=== PATIENT | male | born 1950 | race Caucasian/White ===

== ENCOUNTER 2020-07-02 14:14 | Outpatient (CLI) | payer MEDICARE, OTHER, SELFPAY | END 2020-07-02 14:15 | disposition home or self-care (01) | LOC: ANHCOVIDVC 14:14 | PROVIDERS: PCP Family Medicine | DX: Z23 Encounter for immunization (principal) | CPT/HCPCS: 0001A; 91300 ==

== ENCOUNTER 2020-07-23 14:15 | Outpatient (CLI) | payer MEDICARE, OTHER, SELFPAY | END 2020-07-23 14:16 | disposition home or self-care (01) | LOC: ANHCOVIDVC 14:15 | PROVIDERS: PCP Family Medicine | DX: Z23 Encounter for immunization (principal) | CPT/HCPCS: 0002A; 91300 ==

== ENCOUNTER 2021-06-19 09:06 | Outpatient (CLI) | payer MEDICARE, OTHER, SELFPAY ==
--- NOTE | ~2021-06-19 | XR_ITS ---
EXAMINATION: XR foot LT min 3V DATE: 06/19/2021 09:37 INDICATION: Left foot pain TECHNIQUE: Dorsoplantar, lateral, and 2 oblique views of the left foot were obtained. COMPARISON: None. FINDINGS: Bone alignment is normal. There is no fracture. There is advanced osteoarthritis at the fir st metatarsophalangeal joint. Calcified atherosclerosis is noted. IMPRESSION: 1. No acute osseous abnormality. Reviewed, dictated and finalized at location A. ADV[employer]ATE
--- NOTE | ~2021-06-19 | XR_ITS ---
XR foot RT min 3V DATE: 06/19/2021 09:36 INDICATION: Foot pain, throbbing in toes. TECHNIQUE: Standing 3 view examination COMPARISON: None FINDINGS: There is severe osteoarthritis at the first metatarsophalangeal joint. No fracture or dislocation, periosteal reaction or bone destruction. Minimal plantar calcaneal enthesopathy. Anterior and posterior tibial artery and metatarsal artery calcification; consider diabetes. IMPRESSION: Severe osteoarthritis at first metatarsophalangeal joint Reviewed, dictated and finalized at location B. STANT PARALEGAL
== END 2021-06-19 09:07 | disposition home or self-care (01) ==
PROVIDERS: PCP Family Medicine; Visit Provider Podiatrist Foot & Ankle Surgery
DX: M19.072 Primary osteoarthritis, left ankle and foot (principal); M19.071 Primary osteoarthritis, right ankle and foot
CPT/HCPCS: 73630

== ENCOUNTER 2022-05-26 11:13 | Outpatient (CLI) | payer MEDICARE, OTHER, SELFPAY ==
--- NOTE | ~2022-05-26 | XR_ITS ---
Left Knee Technique: AP, lateral, and sunrise views were obtained. Clinical History: Pain Findings: No fracture or dislocation is seen. Osseous alignment is anatomic. Joint spaces are preserv ed without degenerative or erosive change. Soft tissues are unremarkable. No joint effusion is seen. Impression: Unremarkable left knee radiographs. Reviewed, dictated and finalized at location . MECHANIC Impression: Unremarkable left knee radiographs.
== END 2022-05-26 11:14 | disposition home or self-care (01) ==
PROVIDERS: PCP Family Medicine; Visit Provider Nurse Practitioner Family
DX: M25.562 Pain in left knee (principal)
CPT/HCPCS: 73564

== ENCOUNTER 2022-10-01 14:45 | Outpatient (RCR) | payer MEDICARE, OTHER, SELFPAY ==
--- NOTE | 2022-08-14 20:27 | PTOPEVAL1 ---
Assessment and note entered by Emilio Jones, PT Evaluation Information Assessment Status Evaluation Diagnosis L knee pain Subjective Information Patient reports he started having L knee after playing some sports and feeling like he landed wrong and felt his knee get tweaked. He has pain that is around the L knee going into the quads and down into the calf. 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 Wants to stay active, has trouble currently. Does not want to use NSAID's because he would have to stop drinking beer because he is worried about liver issues. Assessment PT Clinical Summary Jacobo is a 71 year old male coming into the clinic with L knee pain. Patient has tightness in his L hamstrings and weakness in his hip abductors and VMO. Physical therapy will work on improving deficits to allow the knee to be more stable and use manual and modalities as needed for pain control. Plan of Care Interventions Electrical Stimulation,Gait Training,Hot Pack/Cold Pack,Manual Therapy,Neuro Re-education,Patient/ Caregiver Education,Therapeutic Activities, Therapeutic Exercise,Ultrasound Other Interventions taping, cupping, IASTM PT Services Indicated Yes Treatment Frequency and 1-2x/wk for 4 weeks Duration These treatments will address the objective and functional deficits as defined above. The patient will be advanced safely and appropriately in order for the patient to progress towards his/her prior level of function. Additional exercises will be introduced and as well as a comprehensive home exercise program upon discharge, if needed, ?to ensure carryover of functional gains achieved in the clinic. This treatment plan has been reviewed and agreement upon by the patient.
--- NOTE | 2022-08-29 13:06 | PCPTNOTE ---
Pt no showed his appt. today due to thinking he had a later time in the after noon. He will be in [place] for the next two weeks and should be back for his next appt. on September 11 at 3:30.
--- NOTE | 2022-09-11 16:23 | PTOPREEVAL ---
Assessment and note entered by Emilio Jones, PT Evaluation Information Assessment Status Re-evaluation Diagnosis R shoulder pain, L knee pain Subjective Information Patient reports the knee has been feeling better about 80%, but the shoulder started bothering him mainly in sleeping and when unsupported. Pain is in the shoulder and upper pec no radiating pain down the arm or into the upper back or neck. Reported Pain Level Pain Score 0,0: Self Report Assessment PT Clinical Summary Jacobo is a 71 year old male coming in for L knee pain and now with a new script for a R shoulder pain. He was originally evaluated on 08/13/22. He has met his original pain, functional, and range of motion goals. He met 1/2 of his knee strengthening goals. Patient will continue to be seen for his knee. Patient has weak scapular muscles and tight pecs. Will work on correcting the overbalanced and rounded shoulders posture with stretching and strengthening, modalities and manual therapy as needed for pain. Plan of Care Interventions Electrical Stimulation,Gait Training,Hot Pack/Cold Pack,Manual Therapy,Neuro Re-education,Patient/ Caregiver Education,Therapeutic Activities, Therapeutic Exercise,Ultrasound Other Interventions cupping, taping, IASTM. PT Services Indicated Yes Treatment Frequency and 1-2x/wk for 4 weeks Duration These treatments will address the objective and functional deficits as defined above. The patient will be advanced safely and appropriately in order for the patient to progress towards his/her prior level of function. Additional exercises will be introduced and as well as a comprehensive home exercise program upon discharge, if needed, ?to ensure carryover of functional gains achieved in the clinic. This treatment plan has been reviewed and agreement upon by the patient.
--- NOTE | 2022-10-01 16:23 | PTOPDC ---
Assessment and note entered by Emilio Jones, PT Evaluation Information Assessment Status Discharge Diagnosis R shoulder pain Subjective Information Patient finishes session with HÉCTOR Sherwood. Patient reports he feels like he is no longer having any issues and would like to be discharged. No pain with pickleball, volleyball, and sleeping through the night. Reported Pain Level Pain Score 0: Self Report Pain Score 0: Self Report Assessment PT Clinical Summary Jacobo is a 71 year old male coming into the clinic with a diagnosis of R shoulder pain and prior to that L knee pain. He was evaluated on 08/13/22 and attended 7 sessions. He has met all of his goals including improved strength in his scapular muscles, improved flexibility in his pecs minors, and able to sleep through the night. Discharged from skilled physical therapy. Plan of Care PT Services Indicated No
== END 2022-10-03 08:19 | disposition home or self-care (01) ==
LOC: ANHPT 14:45
PROVIDERS: PCP Family Medicine; Visit Provider Nurse Practitioner Family
DX: M25.562 Pain in left knee (principal)
CPT/HCPCS: 97110; 97112; 97161; 97164; 97530; 99199

== ENCOUNTER 2023-11-11 00:49 | Day surgery (SDC) | payer MEDICARE, OTHER, SELFPAY ==
[2023-10-26 09:38] VITALS: BMI 24.4
[2023-11-11 06:39] VITALS: BP 108/79; PULSE 81; RESP 17; TEMP 36; O2SAT 97; BMI 22.8
[2023-11-11] MEDS: LACTATED RINGERS 1,000 ML 150 ML IV CONT (06:51)
[2023-11-11] MEDS: GENTAMICIN 80MG/SOD CHL 50 ML 80 MG/50 ML BAG 100 MG IVPB (06:52)
[2023-11-11] MEDS: AMPICILLIN 2 GM/NS 100 ML 2 GM/100 ML BAG IVPB (07:21)
--- NOTE | 2023-11-11 07:25 | WPDANESEPPF ---
Anes - Initial Pre Proc Eval Procedure: Operation Date: 11/11/23 08:00 Proposed Procedures p Colonoscopy - Garth Francois MD Date/Time: 11/11/23 07:25 Surgeon: Garth Francois MD Pre Op Diagnosis: Family hx. colon CA Patient Data Age: 73 Gender: M Height: 1.75 m Weight: 70.1 kg Last Vital Signs Temp 96.8 F L 11/11/23 06:39 Pulse 81 11/11/23 06:39 Resp 17 11/11/23 06:39 BP 108/79 11/11/23 06:39 Pulse Ox 97 11/11/23 06:39 O2 Del Method Room Air 11/11/23 06:39 Allergies Allergy/AdvReac Type Severity Reaction Status Date / Time simvastatin AdvReac Unknown ELEVATED Verified 11/11/23 06:37 CREATININE Home Medications Medication Instructions Recorded Confirmed Type aspirin 81 mg tablet,delayed 81 mg PO DAILY 04/18/19 11/11/23 History release multivitamin 1 tablet PO HS 04/18/19 11/11/23 History omega-3 acid ethyl esters 1 gram 4 cap PO DAILY 04/18/19 11/11/23 History capsule atorvastatin 80 mg tablet 80 mg PO DAILY 01/02/21 11/11/23 History collagen 1 dose BYMOUTH DAILY 11/27/21 11/11/23 History ketoconazole 2 % shampoo 1 applic topical 2XW #120 mL 02/06/23 11/11/23 Rx Patient hx anesthesia problems: none Family hx anesthesia problems: none Results Review: All pre-operative results and documents have been reviewed as part of the pre-operative evaluation. [facility] Past Medical History Medical History Abnormal fasting glucose (07/22/21) Glucose elevated at 108 on 07/22/2021. Aortic valve disease CAD (coronary artery disease) Echocardiogram 07/09/2022 with mild LVH and mild diastolic dysfunction with ejection fraction 65% with mitral valve prolapse, mild mitral valve regurgitation, tricuspid valve regurgitation, pulmonary valve regurgitation and trace aortic valve regurgitation. Dandruff in adult Dupuytren's contracture of left hand Family history of colon cancer Family history of hemochromatosis Hx of basal cell carcinoma Hyperlipidemia, unspecified Total cholesterol 147, triglycerides 71, HDL 72 and LDL 60 on 07/22/2021. Joint pain Left knee pain FPC use of drug Nocturia PSA normal at 0.57 on 07/22/2021. Right shoulder pain Tick bite Surgical History Surgical History History of aortic valve replacement 07/11/2016 History of appendectomy (~2016) S/P CABG (coronary artery bypass graft) (~07/11/16) Family History Family History Father Carcinoma of colon Grandparent Family history of rheumatoid arthritis Sibling AA (alcohol abuse) Other Family history of elevated blood lipids Social History Social History Smoking packs per day: 1.5 Smoking cigarettes per day: 30.0 Years smoked: 12 Smoking pack-years: 18.00 Smoking status: Former smoker Tobacco type: cigarettes Smoking end date: 05/04/86 Alcohol intake: current Drinks per week: 25 Alcohol use details: between 0-6 beers a day Substance use: never Substance use type: does not use Lack of Transportation: No Lack of Food: Never True Current Housing: I Have Housing Concerned About Future Housing: No Difficulty Paying Gas/Electric Bills: No Difficulty Paying for Meds: No Currently Unemployed: No Education: Master's Degree or Higher Difficulty w/ Childcare or Family Care: No Living arrangements: with family Spiritual care concerns: No Anes - Eval Final PreProcedure Day of Procedure 11/11/23 07:25 Patient weight: normal Heart: regular rate and rhythm Lungs: clear to auscultation Airway: Mallampati scale class II Neurological: alert and oriented Last oral intake: >/= 8 hours ASA classification: III Emergent: no Anesthetic plan: proceed Anesthesia type and monitoring: general GIVS and standard monito
--- NOTE | 2023-11-11 07:41 | PM.HPGS ---
History of Present Illness History of Present Illness Consent: Risks, benefits, and alternatives have been discussed and questions answered. Patient agrees to proceed with procedure. Chief complaint: Family hx. colon CA Narrative: Jacobo Scott is a 73 year old male here for colonoscopy, last one 5 years ago, father had colon cancer Review of Systems Review of Systems: All systems reviewed & are unremarkable except as noted in HPI and below PMFSH Past Medical History Medical History (Updated 11/11/23 @ 07:43 by Garth Francois MD) Abnormal fasting glucose (07/22/21) Glucose elevated at 108 on 07/22/2021. Aortic valve disease CAD (coronary artery disease) Echocardiogram 07/09/2022 with mild LVH and mild diastolic dysfunction with ejection fraction 65% with mitral valve prolapse, mild mitral valve regurgitation, tricuspid valve regurgitation, pulmonary valve regurgitation and trace aortic valve regurgitation. Dandruff in adult Dupuytren's contracture of left hand Family history of colon cancer Family history of colon cancer in father Family history of hemochromatosis Hx of basal cell carcinoma Hyperlipidemia, unspecified Total cholesterol 147, triglycerides 71, HDL 72 and LDL 60 on 07/22/2021. Joint pain Left knee pain watermaster use of drug Nocturia PSA normal at 0.57 on 07/22/2021. Right shoulder pain Tick bite Surgical History Surgical History History of aortic valve replacement 07/11/2016 History of appendectomy (~2016) S/P CABG (coronary artery bypass graft) (~07/11/16) Family History Family History Father Carcinoma of colon Grandparent Family history of rheumatoid arthritis Sibling AA (alcohol abuse) Other Family history of elevated blood lipids Social History Social History Smoking packs per day: 1.5 Smoking cigarettes per day: 30.0 Years smoked: 12 Smoking pack-years: 18.00 Smoking status: Former smoker Tobacco type: cigarettes Smoking end date: 05/04/86 Alcohol intake: current Drinks per week: 25 Alcohol use details: between 0-6 beers a day Substance use: never Substance use type: does not use Lack of Transportation: No Lack of Food: Never True Current Housing: I Have Housing Concerned About Future Housing: No Difficulty Paying Gas/Electric Bills: No Difficulty Paying for Meds: No Currently Unemployed: No Education: Master's Degree or Higher Difficulty w/ Childcare or Family Care: No Living arrangements: with family Spiritual care concerns: No Meds Home Medications and Allergies Home Medications Medication Instructions Recorded Confirmed Type aspirin 81 mg tablet,delayed 81 mg PO DAILY 04/18/19 11/11/23 History release multivitamin 1 tablet PO HS 04/18/19 11/11/23 History omega-3 acid ethyl esters 1 gram 4 cap PO DAILY 04/18/19 11/11/23 History capsule atorvastatin 80 mg tablet 80 mg PO DAILY 01/02/21 11/11/23 History collagen 1 dose BYMOUTH DAILY 11/27/21 11/11/23 History ketoconazole 2 % shampoo 1 applic topical 2XW #120 mL 02/06/23 11/11/23 Rx Allergies Allergy/AdvReac Type Severity Reaction Status Date / Time simvastatin AdvReac Unknown ELEVATED Verified 11/11/23 06:37 CREATININE Vital Signs Vital Signs - 24 hr 11/11/23 06:39 Temperature 96.8 F L Pulse Rate 81 Respiratory Rate 17 Blood Pressure 108/79 Pulse Oximetry 97 Oxygen Delivery Room Air Exam Const: General: comfortable and no acute distress HENMT: Face/Nose/Sinus: Normal nares present Eyes: General: appearance normal, both eyes and all related structures Neck: Neck: no JVD Resp: Auscultation: clear to auscultation bilaterally Cardio: Rate: regular rate Rhythm: regular rhythm GI: Inspection: non-distended GI Palp: Yes Soft to palpation Skin:
[2023-11-11 07:58] VITALS: BP 102/66; PULSE 73; RESP 17; O2SAT 98
[2023-11-11 08:08] VITALS: BP 116/80; PULSE 77; RESP 22; O2SAT 97
[2023-11-11 08:18] VITALS: BP 116/80; PULSE 74; RESP 17; O2SAT 98
== END 2023-11-11 08:28 | disposition home or self-care (01) ==
PROVIDERS: PCP Family Medicine; Referring Provider Nurse Practitioner Family; Visit Provider Internal Medicine Gastroenterology
PROC: 0DJD8ZZ Inspection of Lower Intestinal Tract, Via Natural or Artificial Opening Endoscopic (ICD-10-PCS; CPT 45378; principal; 2023-11-11 08:00)
DX: K63.5 Polyp of colon (principal); K57.30 Diverticulosis of large intestine without perforation or abscess without bleeding; K64.8 Other hemorrhoids; Z80.0 Family history of malignant neoplasm of digestive organs; I25.10 Atherosclerotic heart disease of native coronary artery without angina pectoris; E78.5 Hyperlipidemia, unspecified; Z79.82 Long term (current) use of aspirin; Z95.1 Presence of aortocoronary bypass graft; Z95.4 Presence of other heart-valve replacement; Z87.891 Personal history of nicotine dependence
CPT/HCPCS: 45385; 88305; J0290; J1580; J2704; J7120

== ENCOUNTER → 2024-04-21 10:01 | Outpatient (CLI) | payer MEDICARE, OTHER, SELFPAY ==
--- NOTE | ~2024-04-21 | XR_ITS ---
Right Knee Technique: AP and sunrise views were obtained. Clinical History: Pain Findings: No fracture or dislocation is seen. Osseous alignment is anatomic. Minimal degenerative spu rring present. Soft tissues are unremarkable. No joint effusion is seen. Impression: Minimal degenerative spurring. Reviewed, dictated and finalized at location . ICE CARE TRANSITIONS COORDINATOR Impression: Minimal degenerative spurring.
== END ==
LOC: EXPTRAD 10:03
PROVIDERS: PCP Nurse Practitioner Family; Visit Provider Nurse Practitioner Family
DX: M25.561 Pain in right knee (principal)
CPT/HCPCS: 73562

== ENCOUNTER 2024-10-24 10:16 | Emergency (ER) | payer MEDICARE, OTHER, SELFPAY ==
[2024-10-24 10:22] VITALS: BP 121/79; PULSE 80; RESP 16; TEMP 36.3; O2SAT 98
--- NOTE | 2024-10-24 10:38 | ED.SKABFB ---
HPI - Skin/Abscess/Foreign Bdy General Chief complaint: Skin/Abscess/Foreign Body Stated complaint: Skin/Abscess/Foreign Body Time Seen by Provider: 10/24/24 10:26 Source: patient and RN notes reviewed Mode of arrival: ambulatory Limitations: no limitations History of Present Illness HPI narrative: Patient presents today with a tick bite to the left upper arm that was sustained 2.5 weeks prior to arrival. Believes tick was imbedded in the skin for less than 12 hours. Denies pain or itching, but states the area feels firm and wanted to come in for evaluation. Denies any additional symptoms to include fever, nausea or vomiting, headache, sweats or chills. Related Data Home Medications ?Medication ?Instructions ?Recorded ?Confirmed ?Last Taken ?Type aspirin 81 mg tablet,delayed 81 mg PO DAILY 04/18/19 10/24/24 Unknown History release multivitamin 1 tablet PO HS 04/18/19 10/24/24 Unknown History omega-3 acid ethyl esters 1 gram 4 cap PO DAILY 04/18/19 10/24/24 Unknown History capsule atorvastatin 80 mg tablet 80 mg PO DAILY 01/02/21 10/24/24 Unknown History collagen 1 dose BYMOUTH DAILY 11/27/21 10/24/24 Unknown History Allergies Allergy/AdvReac Type Severity Reaction Status Date / Time simvastatin AdvReac Unknown ELEVATED Verified 10/24/24 10:17 CREATININE Review of Systems Review of Systems: CONSTITUTIONAL: Denies body aches, fever, chills, or sweats. EYES: Denies visual changes, redness, or discharge. ENT: Denies rhinorrhea, congestion, sore throat, or otalgia. CARDIOVASCULAR: Denies chest pain, palpitations, or edema. RESPIRATORY: Denies cough or dyspnea. GASTROINTESTINAL: Denies abdominal pain, nausea, vomiting, or diarrhea. GENITOURINARY: Denies dysuria or hematuria. SKIN: Denies rash, itching, or wounds. + tick bite MUSCULOSKELETAL: Denies back pain, joint pain, or myalgia. NEUROLOGIC: Denies headache, numbness, tingling, or weakness. PSYCH: Denies depression or anxiety. [facility] Past Medical History Medical History Low back pain Right knee pain Colon polyp, hyperplastic (11/11/23) 5 mm hyperplastic polyp of the transverse colon on colonoscopy 11/11/2023 with recheck in 5 years. 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 Family history of colon cancer Nocturia PSA normal at 0.57 on 07/22/2021. Hx of basal cell carcinoma CAD (coronary artery disease) Echocardiogram 07/09/2022 with mild LVH and mild diastolic dysfunction with ejection fraction 65% with mitral valve prolapse, mild mitral valve regurgitation, tricuspid valve regurgitation, pulmonary valve regurgitation and trace aortic valve regurgitation. Aortic valve disease Hyperlipidemia, unspecified Total cholesterol 147, triglycerides 71, HDL 72 and LDL 60 on 07/22/2021. Surgical History Surgical History History of aortic valve replacement 07/11/2016 History of appendectomy (~2016) S/P CABG (coronary artery bypass graft) (~07/11/16) Family History Family History Father Carcinoma of colon Grandparent Family history of rheumatoid arthritis Sibling AA (alcohol abuse) Other Family history of elevated blood lipids Social History Social History Social History: caffeine use Smoking packs per day: 1.5 Smoking cigarettes per day: 30.0 Years smoked: 12 Smoking pack-years: 18.00 Smoking status: Former smoker Tobacco type: cigarettes Smoking end date: 05/04/86 Alcohol intake: current Drinks per week: 25 Alcohol use details: between 0-6 beers a day Substance use: never Substance use type: does not use Lack of Transportation: No Lack of Food: Never True Current Housing: I Have Housing Concerned About Future Housing: No Difficulty Paying Gas/Electric Bills: No Difficulty Paying for Meds: No Currently Unemployed: No Education: Master's Degree or Higher Difficulty w/ Childcare or Family Care: No Living arrangements: with family Occupation/Education: retired Gender identity (if verbalized by the patient): Male Spiritual care concerns: No Comments At time of signature, I have reviewed and agree with nursing past medical, surgical, social and family history unless otherwise noted. Please see nursing chart for further information. There is no relevant family history pertinent to the presenting complaint Exam Narrative: GENERAL: Well-appearing, well-nourished, and in no acute distress. HEAD: Normocephalic, atraumatic. EYES: EOMI. No redness or drainage. Conjunctivae normal. ENT: Mucous membranes pink and moist. NECK: Normal AROM. CHEST: No respiratory distress. EXTREMITIES: Normal range of motion. No edema. SKIN: Warm, dry, no rash. Capillary refill normal. Normal skin turgor. 1 x 0.5 cm area of mild erythema and induration to the left anterior upper arm. Nontender to palpation. 2- 3 mm scab in the center. No fluctuance. NEURO: No focal deficits. Alert and oriented x3. Gait steady. PSYCH: Normal affect. No signs of depression or anxiety. Course Course Level of Care: Express Care Visit Vital Signs Vital signs: Vital Signs Temperature 97.4 F L 10/24/24 10:22 Pulse Rate 80 10/24/24 10:22 Respiratory Rate 16 10/24/24 10:22 Blood Pressure 121/79 10/24/24 10:22 Pulse Oximetry 98 10/24/24 10:22 Oxygen Delivery Room Air 10/24/24 10:22 Temperature 97.4 F L 10/24/24 10:22 Pulse Rate 80 10/24/24 10:22 Respiratory Rate 16 10/24/24 10:22 Blood Pressure 121/79 10/24/24 10:22 Pulse Oximetry 98 10/24/24 10:22 Oxygen Delivery Room Air 10/24/24 10:22 Reviewed Procedures Other Procedure Procedure 1: Other Procedure: scab removed from insect bite using 18g needle tip and foreceps. No discharge or tick head resulting. Patient tolerated procedure well. Dressed with bandaid. MDM - Skin/Abscess/Foreign Bdy MDM Narrative Medical decision making narrative: Scab was removed from insect bite to ensure that there was no abscess present. No drainage or foreign body noted. Wound okay to heal on its own. Covered with Band-Aid. No signs of infection present. Patient is having no pain, only itching. No prescription indicated at this time. Anticipatory guidance given. Differential Diagnosis Differential diagnosis: Likely abscess of skin or subcutaneous tissue, cellulitis, insect bites, impetigo and other (Tick bite, Lyme disease) Critical Care Time Critical Care Time Critical Care Time: No Discharge Plan Discharge Clinical Impression: Allergic reaction to insect bite Patient Disposition: Home Condition: Stable Instructions: Insect Bite or Sting (ED) Additional Instructions: The tick bite on your arm seems to be healing without signs of infection. You may apply a topical steroid cream such as hydrocortisone or an anti-itch cream such as topical Benadryl if needed for itch. Follow-up with your PCP with any additional concerns. Your blood pressure was elevated above 120/80 today at Urgent Care. This puts you above the threshold for follow up. Please schedule a followup visit with your personal physician as soon as possible, for further evaluation and treatment. Even blood pressure exceeding 120/80 may indicate pre-hypertension. Patient Language: [place] Prescriptions: No Action aspirin 81 mg tablet,delayed release (DR/EC) 81 mg PO DAILY multivitamin Tablet 1 tablet PO HS omega-3 acid ethyl esters 1 gram capsule 4 cap PO DAILY atorvastatin 80 mg tablet 80 mg PO DAILY collagen 1 dose BYMOUTH DAILY Follow-up/Referrals: José Miguel Schneider MD [Primary Care Provider] - Time of Disposition: 10:39
== END 2024-10-24 10:40 | disposition home or self-care (01) ==
PROVIDERS: Emergency Provider Nurse Practitioner; PCP Family Medicine
DX: T63.481A Toxic effect of venom of other arthropod, accidental (unintentional), initial encounter (principal); I25.10 Atherosclerotic heart disease of native coronary artery without angina pectoris; E78.5 Hyperlipidemia, unspecified; Z85.828 Personal history of other malignant neoplasm of skin; Z79.82 Long term (current) use of aspirin; Z79.899 Other long term (current) drug therapy; Z87.891 Personal history of nicotine dependence
CPT/HCPCS: 99212; G0463